=== PATIENT | female | born 1960 | race African-American/Black ===

== ENCOUNTER 2017-03-26 19:11 | Emergency (ER) | payer MEDICAID ==
[~2017-03-26] VITALS: Ht 172.7 cm; Wt 80.0 kg
[~2017-03-26 19:11] MED LIST: CARISOPRODOL; VICODIN
[2017-03-26 19:21] VITALS: BP 162/90
[2017-03-26] MEDS ORDERED: ACETAMINOPHEN 325MG TABLET PO ONE (20:45)
== END 2017-03-26 23:28 | disposition home or self-care (01) ==
LOC: ER 19:11
DX: M54.9 Dorsalgia, unspecified (principal); M25.512 Pain in left shoulder; V78.1XXA Passenger on bus injured in noncollision transport accident in nontraffic accident, initial encounter; Y93.89 Activity, other specified; Y92.811 Bus as the place of occurrence of the external cause; E11.9 Type 2 diabetes mellitus without complications; R03.0 Elevated blood-pressure reading, without diagnosis of hypertension; F17.210 Nicotine dependence, cigarettes, uncomplicated
CPT/HCPCS: 72100; 73030; 99284